=== PATIENT | male | born 1970 | race Caucasian/White ===

== ENCOUNTER 2019-03-03 06:44 | Observation (INO) | payer OTHER ==
[~2019-03-03] VITALS: Ht 182.9 cm; Wt 146.1 kg
[~2019-03-03 06:44] MED LIST: BENICAR HCT 401 EAC1 PO; BENICAR20 MG PO
--- OUTSIDE RECORDS SUMMARY | 2019-03-03 06:46 | XMS REPORT ---
[facility] Address Unknown Phone Unavailable Care Team Providers Care Screening Tech Name Role Phone Jaziel EPPERSON Unavailable Unavailable Problems This patient has no known problems. Allergies, Adverse Reactions, Alerts This patient has no known allergies or adverse reactions. Medications This patient has no known medications. Results Test Description Test Time Test Comments Text Results Atomic Results Result Comments CHEST SINGLE (PORTABLE) [place] [id number] Patient Name: YOBANI RINALDI MR #: [id number] : 1970 Age/Sex: 46/M Req #: [id number] Adm Physician: Ordered by: JOE EPPERSON MD Report #: [id number] Location: ER Room/Bed: Procedure: [id number] DX/CHEST SINGLE (PORTABLE) Exam Date: 06/25/17 Exam Time: 0730 REPORT STATUS: Signed PROCEDURE: CHEST SINGLE (PORTABLE) COMPARISON: None. INDICATIONS: CHEST PAIN FINDINGS: LUNGS: Mild pulmonary vascular congestion. PLEURA: No effusions or pneumothorax. HEART T MEDIASTINUM: The heart is prominent. BONES T SOFT TISSUES: No acute findings. CONCLUSION: Mild pulmonary vascular congestion. Rebecca Moses D.O. Dictated by: Rebecca Moses D.O. on 06/25/2017 at 8:19 Electronically approved by: Rebecca Moses D.O. on 06/25/2017 at 8:19 Dictated By: REBECCA MOSES DO 8 Transcribed By: MEGAN on 06/25/17818 COPY TO: JOE EPPERSON MD
[2019-03-03 07:29] LABS: BASOPHILS # (AUTO) 0.1 (0.0-0.1); BASOPHILS % 0.5 % (0.0-1.0); EOSINOPHILS # (AUTO) 0.1 (0.0-0.4); EOSINOPHILS % 1.2 % (0.0-6.0); HEMATOCRIT 43.2 % (38.2-49.6); HEMOGLOBIN 14.4 g/dL (14.0-18.0); LYMPHOCYTES # (AUTO) 2.4 (1.0-3.2); LYMPHOCYTES % 24.7 % (18.0-39.1); MEAN CORPUSCULAR HEMOGLOBIN 27.9 pg (28-32); MEAN CORPUSCULAR HGB CONC 33.3 g/dL (31-35); MEAN CORPUSCULAR VOLUME 83.6 fL (81-99); MONOCYTES # (AUTO) 0.7 (0.2-0.8); MONOCYTES % 6.6 % (4.4-11.3); NEUTROPHILS # (AUTO) 6.6 (2.1-6.9); NEUTROPHILS % 66.6 % (38.7-80.0); PLATELET COUNT 303 x10e3/uL (140-360); RED BLOOD COUNT 5.17 x10e6/uL (4.3-5.7); RED CELL DISTRIBUTION WIDTH 12.6 % (11.7-14.4)
[2019-03-03 07:44] LABS: ALANINE AMINOTRANSFERASE 40 IU/L (0-55); ALKALINE PHOSPHATASE 89 IU/L (40-150); ANION GAP 14.7 mmol/L (8-16); BLOOD UREA NITROGEN 16 mg/dL (7-26); BUN/CREATININE RATIO 15 (6-25); CALCIUM 10.6 mg/dL (8.4-10.2); CARBON DIOXIDE 26 mmol/L (22-29); CHLORIDE 99 mmol/L (98-107); CREATINE KINASE 222 IU/L (30-200); CREATININE, SERUM 1.05 mg/dL (0.72-1.25); EST GLOMERULAR FILTRATION RATE > 60 ML/MIN (60-); GLUCOSE 180 mg/dL (74-118); POTASSIUM 3.7 mmol/L (3.5-5.1); SODIUM 136 mmol/L (136-145)
[2019-03-03] MEDS ORDERED: SODIUM CHLORIDE 0.9% 1000ML 1,000 ML IV SCH (08:00)
[2019-03-03] MEDS ORDERED: NITROGLYCERIN/D5W 200 MCG/ML 250 ML IV PRN (08:30)
--- NOTE | 2019-03-03 08:39 | Diagnostic Imaging Report ---
Chest, 1 view, 03/03/2019. History: Chest pain, shortness of breath. Comparison: None available. Findings: The cardiomediastinal silhouette and pulmonary vasculature are within normal limits for a portable exam. There is no focal consolidation or pleural effusion. There are no acute osseous or soft tissue abnormalities. Impression: No acute cardiopulmonary abnormality. Signed by: Marco Trimble on 03/03/2019 8:35 AM
--- NOTE | 2019-03-03 08:47 | NUR ---
CALLED KITCHEN FOR BREAKFAST TRAY
[2019-03-03] MEDS ORDERED: METFORMIN HCL500 MG PO (09:16)
[2019-03-03] MEDS ORDERED: BUPROPION XL150 MG PO (09:17)
[2019-03-03] MEDS ORDERED: CRESTOR10 MG PO (09:18)
[2019-03-03] MEDS ORDERED: DEXTROSE 50% SYRINGE 50 ML IV PRN (09:30)
--- NOTE | 2019-03-03 10:00 | NUR ---
recd pt from er via stretcher ,aaox3,denies chest pain,tele in place nsr 73 c pvc,iv to lt hand patent.call reyez in reach, hob elevated,
[2019-03-03 10:37] VITALS: BP 158/86
[2019-03-03] MEDS: INSULIN REGULAR, HUMAN 100 UNIT/1 ML 3ML VIAL SQ SCH ×3 (11:30→21:00)
[2019-03-03 11:39] VITALS: BP 158/86
[2019-03-03] MEDS: HYDROCHLOROTHIAZIDE 25 MG TAB PO SCH (13:00)
[2019-03-03] MEDS: OLMESARTAN 20 MG TAB PO SCH (13:00)
[2019-03-03 16:54] VITALS: BP 122/61
[2019-03-03] MEDS: METFORMIN HCL 500 MG TAB PO SCH (17:00)
--- NOTE | 2019-03-03 18:38 | NUR ---
PT UP IN BED DENIES CHEST PAIN
[2019-03-03 19:09] LABS: CREATINE KINASE 144 IU/L (30-200)
[2019-03-03 20:00] VITALS: BP 127/74
--- NOTE | 2019-03-03 20:10 | NUR ---
Received change of shift report from AM nurse. Walking rounds completed.
[2019-03-03] MEDS: SIMVASTATIN 20 MG TAB PO SCH ×2 (21:00→22:09)
[2019-03-03] MEDS ORDERED: SIMVASTATIN 40 MG TAB PO SCH (21:00)
--- NOTE | 2019-03-03 21:00 | NUR ---
Patient BS 154 refused insulin and refused meds. Pt states I have my meds. Encourage pt MD need to be aware of what he is taking. Pt verbalize understanding.
--- NOTE | 2019-03-03 22:40 | Consultation ---
DATE OF CONSULTATION: REASON FOR CONSULTATION: Chest pain. HISTORY OF PRESENT ILLNESS: This is a 48-year-old man, who presented to the emergency department with chest pain. He states that while walking his dog, he felt a chest pressure, centrally located without radiation with minimal exertion, now improved with medications. The patient states that he has been under a lot of stress at work lately. He is feeling asymptomatic now. He ruled out for myocardial infarction with one set of cardiac enzymes so far. REVIEW OF SYSTEMS: A 12-point review of system was conducted, is negative otherwise stated above in the HPI. PAST MEDICAL HISTORY: Obesity, hypertension, hyperlipidemia, and diabetes mellitus. PAST SURGICAL HISTORY: None reported. PAST FAMILY HISTORY: Father with myocardial infarction at 50 years of age. PAST SURGICAL HISTORY: None recent. ALLERGIES: PENICILLIN. MEDICATIONS: See medication reconciliation form. PHYSICAL EXAMINATION: VITAL SIGNS: Temperature is 97.6, heart rate 72, respirations 18, blood pressure is 140/80, and oxygen saturation 98% on room air. GENERAL: He is well appearing, well built, in no apparent distress. Alert and oriented x3. HEAD: Normocephalic and atraumatic. Eyes, the extraocular muscles are intact. Conjunctivae are clear. NECK: No JVD. No bruits. CARDIOVASCULAR: Regular rate and rhythm. LUNGS: Clear to auscultation. ABDOMEN: Soft, nontender, and nondistended. EXTREMITIES: No clubbing, cyanosis, or edema. VASCULAR: 2+ pulses. SKIN: Warm dry and intact. NEUROLOGIC: No focal deficits noted. Cranial nerves grossly intact. PSYCHIATRIC: Normal mood and affect. LABORATORY DATA: Reviewed creatinine 1.05. Troponin is negative. Chest x-ray shows no acute cardiopulmonary abnormality. A 12-lead electrocardiogram showed normal sinus rhythm. IMPRESSION: 1. Precordial pain. 2. Hypertension. 3. Hyperlipidemia. 4. Diabetes mellitus. 5. Obesity. 6. Anxiety. RECOMMENDATIONS: Continue to trend cardiac enzymes to rule out myocardial infarction. Check a 2D echocardiogram and stress test to evaluate for ischemia. Continue home medications for his other comorbidities. Further recommendations to follow. Gurwinder Wilson DO BM/MODL /[id number]
[2019-03-04] VITALS: BP 117/66
--- NOTE | 2019-03-04 01:06 | NUR ---
Cardiac enz drawn. Pressure dressing applied. Patient tolerated well.
--- NOTE | 2019-03-04 01:13 | NUR ---
Blood taken to lab.
[2019-03-04 01:48] LABS: CREATINE KINASE MB 0.9 ng/mL (0-5.0)
[2019-03-04 04:00] VITALS: BP 118/62
[2019-03-04 06:31] LABS: CHOL/HDL RATIO 3.4 (3.9-4.7)
--- NOTE | 2019-03-04 07:00 | NUR ---
RECEIVED PATIENT IN REPORT. PATIENT RESTING IN BED. NO PAIN REPORTED, NO CHEST PAIN REPORTED. NO S&S OF DISTRESS NOTED. PATIENT IS NPO AWAITING STRESS TEST. BED LOCKED IN LOWEST POSITION, SIDE RAILS UPX2, CALL LIGHT IN REACH.
[2019-03-04] MEDS: INSULIN REGULAR, HUMAN 100 UNIT/1 ML 3ML VIAL SQ SCH ×3 (07:30→16:09)
[2019-03-04 07:40] VITALS: BP 128/62
[2019-03-04] MEDS: METFORMIN HCL 500 MG TAB PO SCH (08:00)
[2019-03-04 08:12] VITALS: BP 128/62
--- NOTE | 2019-03-04 08:35 | NUR ---
SPOKE WITH MD Ricarda SMITH, STATED IF STRESS TEST IS NEGATIVE AND CLEARED BY CARDIOLOGY, PATIENT IS OKAY TO GO HOME.
[2019-03-04] MEDS ORDERED: BUPROPION HCL 150 MG TABCR PO SCH (09:00)
[2019-03-04] MEDS ORDERED: NON-FORMULARY MEDICATION (Olmesartan/Hydrochlorothiazide (Benicar Hct 40-25 Mg Tablet) 1 T PO SCH (09:00)
[2019-03-04] MEDS: OLMESARTAN 20 MG TAB PO SCH (09:00)
[2019-03-04] MEDS: HYDROCHLOROTHIAZIDE 25 MG TAB PO SCH (09:00)
[2019-03-04] MEDS ORDERED: REGADENOSON 0.4 MG/5 ML SYR IV ONE (10:33)
--- NOTE | 2019-03-04 11:00 | NUR ---
PATIENT OFF UNIT FOR STRESS TEST.
[2019-03-04 11:25] VITALS: BP 132/77
--- NOTE | 2019-03-04 14:02 | NUR ---
PATIENT RETURNED FROM STRESS TEST AT THIS TIME.
[2019-03-04 15:13] VITALS: BP 129/61
--- NOTE | 2019-03-04 17:54 | NUR ---
L HAND 20G IV REMOVED AT THIS TIME. CATHETER TIP INTACT. PRESSURE DRESSING APPLIED.
--- NOTE | 2019-03-04 19:11 | Progress Note ---
DATE: SUBJECTIVE: The patient feeling better. Denies any chest pain or shortness of breath. OBJECTIVE: VITAL SIGNS: Temperature is 97.5, heart rate is 77, respirations are 18, blood pressure is 132/77, and oxygen saturation 96% on room air. GENERAL: Well appearing, in no apparent distress. CARDIOVASCULAR: Regular rate and rhythm. LUNGS: Clear to auscultation. ABDOMEN: Soft, nontender, nondistended. EXTREMITIES: No clubbing, cyanosis, or edema. CARDIOVASCULAR MEDICATIONS: Reviewed. LABORATORY DATA: Reviewed. Echocardiogram showed preserved left ventricular systolic function and normal valves. Nuclear stress test showed mild anterior perfusion defect versus artifact. IMPRESSION: 1. Chest pain. 2. Hypertension. 3. Hyperlipidemia. 4. Diabetes mellitus. 5. Obesity. 6. Anxiety. 7. Abnormal stress test. RECOMMENDATIONS: The patient ruled out for acute myocardial infarction. His echocardiogram showed preserved left ventricular systolic function. His stress test was abnormal versus attenuation artifact. The patient can be discharged from a cardiovascular standpoint with outpatient followup. Gurwinder Wilson DO BM/MODL /[id number]
--- NOTE | 2019-03-10 13:48 | Myoview Stress Test ---
DATE OF STUDY: 03/03/2019 18:26:00 Stress Test - Treadmill ONLY PROCEDURE TITLE: Rest/stress single isotope SPECT imaging with pharmacologic stress and gated SPECT imaging. INDICATION: Chest pain. PROCEDURE IN DETAIL: Pharmacologic stress testing was performed with regadenoson per protocol. The heart rate was 76 beats per minute at rest and increased to 97 beats per minute during the regadenoson infusion. The rest blood pressure was 128/73 mmHg and decreased to 110/68 mmHg, which is a normal response. The resting electrocardiogram demonstrated normal sinus rhythm. There were no ST-segment changes suggestive of myocardial ischemia. Myocardial perfusion imaging was performed at rest following the injection of 11 mCi of tetrofosmin. At peak pharmacologic effect, the patient was injected with 33 mCi of tetrofosmin. Gated post-stress tomographic imaging was performed. FINDINGS: The overall quality of study is fair. Left ventricular cavity is noted to be normal size on the rest and stress studies. SPECT images demonstrate homogeneous tracer distribution throughout the myocardium. Gated SPECT imaging reveals normal myocardial thickening and wall motion. The left ventricular ejection fraction was calculated to be 67%. IMPRESSION: Myocardial perfusion imaging is normal. Overall, left ventricular systolic function was normal without regional wall motion abnormalities. Carmen Mcclendon MD ABS/MODL /[id number]
--- NOTE | 2019-04-03 23:37 | Discharge Summary ---
CHIEF COMPLAINT: Midsternal chest pressure radiating down the left arm. FINAL DIAGNOSES: Chest pain, diabetes type 2, obesity. DISPOSITION: Home. HOSPITAL COURSE: A 48-year-old male, obese, with history of diabetes type 2, hypertension, hyperlipidemia, brought to the ER after developing midsternal chest pressure radiating down the left arm while he was walking his dog the morning of admission. He said this lasted about 12 minutes. He had a similar episode 2 years ago. He underwent a cardiac workup by Dr. Abraham. Currently denies any dyspepsia or vomiting, but he has had some nausea. He has had some diaphoresis. He has had some shortness of breath. Workup evaluated in the emergency room. Vital signs were stable. Admission was made for evaluation of chest pain, rule out cardiac ischemia, hypertension, diabetes type 2, hyperlipidemia. We will be requesting a Cardiology followup. We will be monitoring cardiac enzymes. Home medications will continue. With admission regarding his chest pain complaints, he was being reviewed by Cardiology, Dr. Wilson and with his examination of the patient, his impression was precordial pain, hypertension, hyperlipidemia, diabetes mellitus, obesity, anxiety. Continued to follow the remainder of the cardiac enzymes to rule out [place]. We will be obtaining a 2D echo and a stress test to evaluate for ischemia. Home medications will continue. Stress test was performed, reviewed by Dr. Mcclendon. Findings show the myocardial perfusion imaging is normal, overall left ventricular systolic function was normal without regional wall motion abnormalities. He was being treated on the Med-Surg floor, was on a cardiac diet, was resting comfortably. He was given nitroglycerin 0.4 mg sublingual q.5 minutes x3 for chest pain. Daily medications were continuing as well as routine insulin coverage. He was being brought back up to suite. Laboratory studies were being reviewed closely. Stress test and echocardiograms were being carried out. His studies were uneventful and he was cleared for discharge by Cardiology and is released home on 03/05/2019, in stable condition. Imaging of chest shows no acute cardiopulmonary abnormalities. Laboratory studies show a CBC which was unremarkable. Chemistries show an initial electrolyte base stable. Kidney function stable. Initial glucose is 180. First set of cardiac enzymes show a CPK of 222. CK-MB band and troponin I band were normal. Followup blood sugars as well as followup remainder of 2 sets of cardiac enzymes were conducted. The remainder 2 sets of cardiac enzymes were normal. Final glucose is 206. The echocardiogram was showing a preserved left ventricular function with normal valves. The nuclear stress test did show some mild anterior perfusion deficit versus artifact. Recommending discharge for now. He can be followed up on outpatient basis. The patient was released home. No equipments or supplies are necessary. No drains or Vila was needed. We will continue on his diabetic diet. We will be following up with his PCP within 7 to 10 days, following back up with Dr. Abraham for additional cardiac discussion. He will be continuing on mg p.o. daily, metformin 500 mg p.o. b.i.d., Benicar/hydrochlorothiazide one tablet p.o. daily, Crestor 10 mg p.o. daily. With any further concerns or complications, he will be contacting his PCP. Dictated by EFRAIN Beltran Derrek Villar MD CC/MODL /[id number]
== END 2019-03-04 18:05 | disposition home or self-care (01) ==
LOC: ER 06:44 → ERHOLD 08:30 → MED/SURG3 09:54
DX: R07.9 Chest pain, unspecified (principal); I10 Essential (primary) hypertension; E78.5 Hyperlipidemia, unspecified; E11.9 Type 2 diabetes mellitus without complications; E66.9 Obesity, unspecified; Z68.41 Body mass index [BMI] 40.0-44.9, adult; F41.9 Anxiety disorder, unspecified; R94.39 Abnormal result of other cardiovascular function study
CPT/HCPCS: 36415 ×2; 71045; 78452; 80053; 80061; 82550 ×2; 82553 ×2; 82948 ×2; 84484 ×2; 85025; 93005; 93017; 93306; 99284; A9502; G0378 ×2; J2785; J7030

== ENCOUNTER → 2019-03-10 | Day surgery (SDC) | payer OTHER ==
[2019-03-10] VITALS (9 sets, daily range): BP systolic 109–161; BP diastolic 66–87
[~2019-03-10] VITALS: Ht 182.9 cm; Wt 147.4 kg
[~2019-03-10] MED LIST changes: +BUPROPION XL150 MG PO; +CRESTOR10 MG PO; +FENTANYL CITRATE/PF 100MCG/2 ML INJ ONE; +HEPARIN SOD/SOD CHLORIDE 2,000 ML ONE; +IOPAMIDOL 370 MG/ML 200 ML INFUS..BTL INJ ONE; +LIDOCAINE HCL 2% LOCAL 20 ML VIAL ONE; +METFORMIN HCL500 MG PO; +MIDAZOLAM HCL 2 MG/2 ML VIAL ONE; +SODIUM CHLORIDE 0.9% 1000ML 1,000 ML ONE; +VERAPAMIL HCL 2.5 MG/ML 2 ML VIAL ONE
--- NOTE | 2019-03-10 11:45 | NUR ---
1145a bedside report received from Rhonda THRASHER. [facility] Dr Wilson no fix. Identifier x2 Alert oriented and appropriate, PERRLA, respirations even and unlabored to room air. Pulses x4 extremities equal and strong. Pedal pulses PT/DP x4 and marked. Cap fill brisk < 3 sec. Skin warm and dry integrity appears D/I. IV 20g to left hand, presents healthy w/o s/s of infiltration or complaint. Abdomen soft and supple. pt offered toileting, denies need to urinate or defecate. No personal affects with patient. Family at bedside. Pt and family verbalizes understanding of POC. Currently w/o complaint of pain or need. Rt Tr band air removal ok at 1230 and potential dc time at 1330pm No gross issues pain pallor pressure or dysrhythmia. ds/theresa
--- NOTE | 2019-03-10 12:30 | NUR ---
1230 RADIAL Compression removal: Initial Cuff volume 14 cc 1230 -2cc Removed No hematoma/bleeding noted with normal neurovascular function. 1245 -2cc Removed No hematoma/ bleeding noted with normal neurovascular function. 1300 -2cc Removed No hematoma/bleeding noted with normal neurovascular function. 1315pm -2cc Removed No hematoma/ bleeding noted with normal neurovascular function. Air removal completed. Stasis achieved sterile 2x2,Tegaderm, Coban dressing No hematoma, bleeding noted with normal neurovascular function. Wrist splint in place. Pt instructed on POC. prepped for discharge at 1330pm Ds/Rn
--- NOTE | 2019-03-10 13:30 | NUR ---
1330p Pt meets DC criteria. Right TR band site assessed for s/s of complication and presence of hematoma. warm, dry, no discolor, and pulses present. IV removed from left hand. Distal tip appears intact. VS WNL. Pt denies pain, sob, or need at this time. Family at bedside. Review of discharge paperwork and follow up instructions. verbalized understanding. Pt to wheelchair and transported to front of hospital. Transferred to private vehicle under own strength w/o incident with DC paperwork in hand. -ds/rn
--- NOTE | 2019-03-10 17:45 | Operative Report ---
DATE OF PROCEDURE: 03/10/2019 SURGEON: Gurwinder Wilson DO PROCEDURES PERFORMED: 1. Conscious sedation 26 minutes. 2. Selective coronary angiography x2. 3. Left heart catheterization. PREPROCEDURE DIAGNOSIS: Abnormal stress test. POSTPROCEDURE DIAGNOSIS: Abnormal stress test. ESTIMATED BLOOD LOSS: Less than 20 mL. SPECIMENS REMOVED: None. PROCEDURE IN DETAIL: After informed consent was obtained, the patient was brought to the cardiac catheterization laboratory in a fasting and nonsedated state. Bilateral groins were prepped and draped in the usual sterile fashion. A 2% lidocaine was instilled over the right anterior wrist for local anesthesia. Using micropuncture needle, the right radial artery was accessed via modified Seldinger technique. A 5/6 slender sheath was placed. Next, diagnostic selective coronary angiography and left heart catheterization were performed using a TIG catheter. Hemostasis was achieved via TR band. The patient tolerated the procedure well. No immediate complications and transported back to his room in stable condition. PROCEDURAL FINDINGS: 1. Left main coronary artery is patent without significant disease. 2. The proximal left anterior descending coronary has a mild diffuse 20% to 30% non-flow limiting stenosis. 3. The ramus intermedius coronary artery is patent without disease. 4. Left circumflex coronary artery provides one obtuse marginal vessel, which is patent. 5. Right coronary artery is a dominant vessel and provides the posterior descending coronary artery without significant coronary artery disease. 6. Left ventricular end-diastolic pressure is 14 mmHg. No aortic valve gradient present upon pullback. IMPRESSION: Mild nonobstructive coronary artery disease. RECOMMENDATIONS: Continue aggressive medical management. Gurwinder Wilson DO BM/MODL /[id number]
== END | disposition home or self-care (01) ==
LOC: CATH LAB 08:22
PROVIDERS: ATTEND Internal Medicine Cardiovascular Disease
DX: I25.10 Atherosclerotic heart disease of native coronary artery without angina pectoris (principal); R94.39 Abnormal result of other cardiovascular function study; I10 Essential (primary) hypertension; E78.5 Hyperlipidemia, unspecified; E11.9 Type 2 diabetes mellitus without complications; Z79.84 Long term (current) use of oral hypoglycemic drugs
CPT/HCPCS: 93458; C1887; J2001; J2250; J3010; J7030; Q9967